=== PATIENT | male | born 1955 | race Caucasian/White ===

== ENCOUNTER → 2017-07-27 | Outpatient (CLI) | payer BC ==
[~2017-07-27] MED LIST: ASP81CT PO; CLPD75T PO; DICY10CA12 PO; HYDR-3714 PO; LISI10TA PO; METO25TA PO; NITR0.3T SL; ONDN4T PO; PNT40TEC PO; PRAV40TA PO; VARE0.5T PO
== END ==
LOC: CARD 08:34
PROVIDERS: ATTEND Internal Medicine Interventional Cardiology
DX: I25.10 Atherosclerotic heart disease of native coronary artery without angina pectoris (principal); R55 Syncope and collapse
CPT/HCPCS: 93306

== ENCOUNTER → 2017-08-05 | Outpatient (CLI) | payer BC ==
[~2017-08-05] MED LIST changes: +CATHETER FLUSH 10 ML SYR IV PRN; +REGADENOSON 0.4 MG/5 ML SYR (LEXISCAN) IV ONE
[2017-08-05 09:05] VITALS: BP 126/81
[2017-08-05 09:08] VITALS: BP 137/80
--- NOTE | 2017-08-06 09:24 | STRESS TEST ---
DATE OF SERVICE: 08/05/2017 REPORT TITLE: Nuclear Stress Test Report. PRIMARY PHYSICIAN: Les Lopez DO. PERFORMING PHYSICIAN: Dr. Darryl Jenkins. INDICATION: Coronary artery disease, syncope, hyperlipidemia, hypertension, and active smoker. PROCEDURE DETAILS: The patient was brought to the stress lab after informed consent was taken. Pharmacological nuclear stress test was performed according to the protocol. A 0.4 mg of Lexiscan was given IV. Low-grade exercise was performed. Baseline EKG showed sinus rhythm with no ST-T wave abnormalities. Heart rate was 58 BPM. Blood pressure was 144/95 mmHg. Maximum heart rate was 92 BPM and blood pressure was 141/81 mmHg. The patient did not have any stress test, arrhythmias, or EKG changes during Lexiscan infusion. A 10.76 mCi of Myoview were given for rest imaging and 32.3 mCi of Myoview were given for stress imaging. Review of the myocardial perfusion imaging shows TID of 1.03, EF of 51%. Normal wall motion with normal LVEF. Normal perfusion during stress and rest imaging. CONCLUSION: 1. Pharmacological stress test is negative for ischemia. 2. Myocardial perfusion imaging does not show any perfusion defect during stress and rest imaging. Job ID: [id number] DocumentID: [id number] Dictated Date: 08/05/2017 16:20:49 Geotechnical Field Technician Date: 08/05/2017 17:03:39 Dictated By: SHAKIR JENKINS MD
== END ==
LOC: CARD 07:55
PROVIDERS: ATTEND Internal Medicine Interventional Cardiology
DX: I25.10 Atherosclerotic heart disease of native coronary artery without angina pectoris (principal); I10 Essential (primary) hypertension; E78.5 Hyperlipidemia, unspecified; R55 Syncope and collapse; Z72.0 Tobacco use
CPT/HCPCS: 78452; 93017

== ENCOUNTER → 2017-09-23 | Outpatient (CLI) | payer BC ==
[~2017-09-23] MED LIST changes: -CATHETER FLUSH 10 ML SYR IV PRN; -REGADENOSON 0.4 MG/5 ML SYR (LEXISCAN) IV ONE
== END ==
LOC: CARD 08:43
PROVIDERS: ATTEND Internal Medicine Interventional Cardiology
DX: I25.10 Atherosclerotic heart disease of native coronary artery without angina pectoris (principal); Q21.1 Atrial septal defect

== ENCOUNTER → 2019-11-09 | Outpatient (CLI) | payer BC ==
[~2019-11-09] VITALS: Ht 180 cm; Wt 74.0 kg
[~2019-11-09] MED LIST changes: +CARV6.25 PO; +CATHETER FLUSH 10 ML SYR IV PRN; +MELO7.5T46 PO; +REGADENOSON 0.4 MG/5 ML SYR (LEXISCAN) IV ONE
[2019-11-09 09:26] VITALS: BP 141/86
--- NOTE | 2019-11-16 13:04 | Cardiology Stress Test Report ---
Stress Test Report Type of NM Stress Test: Test Type: LEXISCAN 0.4MG/5ML Date of Procedure/Referring: Date of Procedure: Nov 09, 2019 PCP Darryl Jenkins MD Admitting Physician Les Lopez DO Indications: Chest pain Baseline Heart Rate: 57 Baseline Blood Pressure: Blood Pressure Systolic: 141 Blood Pressure Diastolic: 86 Baseline EKG: Baseline EKG: sinus rhythm Summary & Conclusion: Summary: The patient was brought to the stress lab after informed consent was taken. Stress test was performed according to the Lexiscan protocol. 0.4 mg of IV Lexiscan was given. Low-grade exercise was performed. Baseline EKG showed sinus rhythm at 57 BPM. Blood pressure 141/86 mmHg. Maximum heart rate of 63 bpm and blood pressure 139/82 mmHg. Patient did not have any chest pain, arrhythmias or ST segment changes during the stress test. 10.43 mCi of Myoview were given for rest imaging and 30.9 mCi of Myoview given for stress imaging. Transient ischemic dilatation score 1.09, EF 58 percent. Normal wall motion. Small fixed apical defect likely an artifact with normal wall motion Conclusion: Pharmacological stress test was negative for ischemia. Normal LV function with no wall motion abnormalities. Normal myocardial perfusion imaging during rest and stress. Darryl JENKINS MD Nov 16, 2019 13:04
== END ==
LOC: CARD 08:07
PROVIDERS: ATTEND Internal Medicine Interventional Cardiology
DX: I25.118 Atherosclerotic heart disease of native coronary artery with other forms of angina pectoris (principal); I10 Essential (primary) hypertension; E78.5 Hyperlipidemia, unspecified
CPT/HCPCS: 78452; 93017

== ENCOUNTER → 2019-11-16 | Outpatient (CLI) | payer BC ==
[~2019-11-16] MED LIST changes: -CATHETER FLUSH 10 ML SYR IV PRN; -REGADENOSON 0.4 MG/5 ML SYR (LEXISCAN) IV ONE
== END ==
LOC: CARD 10:18
PROVIDERS: ATTEND Internal Medicine Interventional Cardiology
DX: I25.10 Atherosclerotic heart disease of native coronary artery without angina pectoris (principal); E78.5 Hyperlipidemia, unspecified; I10 Essential (primary) hypertension
CPT/HCPCS: 93306

== ENCOUNTER 2020-05-14 11:42 | Emergency (ER) | payer BC ==
[~2020-05-14] VITALS: Ht 180.3 cm; Wt 74.8 kg
[2020-05-14 11:54] VITALS: BP 125/75
[2020-05-14] MEDS ORDERED: ONDANSETRON 4 MG (ZOFRAN) ORAL DISSOLVE TAB PO STA (12:00)
[2020-05-14] MEDS ORDERED: ONDA4TAB11 PO (12:05)
--- NOTE | 2020-05-14 12:05 | ED Abdominal Pain ---
General Chief Complaint: Abdominal/GI Problems Stated Complaint: SOB; COUGH; LUNG PAIN; FATIGUE; NAUSEA; DIARRHEA; Source of Information: Patient, Old Records, RN/MD Exam Limitations: No Limitations History of Present Illness Date Seen by Provider: May 14, 2020 Time Seen by Provider: 11:50 Initial Comments This patient is a 64-year-old male that presents to the emergency department with complaint of nausea and loose stool over the past couple days. Patient sta edson he has had no nausea vomiting today and no diarrhea today. Anything she is on the down we'll slow. Patient states she had felt bad all weekend and try to stay home and has not been out in the public. Patient states that if he get something for the nausea would just help. Patient does not appear to be acutely sick vital signs are stable pulse of 64 blood pressure is 109/71. Patient does have a history of anxiety. Patient does not describe any respiratory symptoms and has no complaints of shortness of breath. Cough congestion or recent travel. I did discuss with the patient. Patient will be given a Zofran orally here and will be given a prescription for Zofran for the next couple days patient is encouraged to orally rehydrate and follow up with PCP in 2-3 days if not improved. Patient may take Pepto-Bismol as needed to help with diarrhea. Timing/Duration: 2-3 Days Severity/Quality: Mild Associated Symptoms: No Denies Symptoms, No Back Pain, No Chest Pain, No Diaphoresis, No Fever/Chills, No Fatigue, No Headache, No Heartburn; Nausea/Vomiting; No Rash, No Shortness of Air, No Swelling/Mass in Abdomen, No Syncope, No Weakness, No Other Allergies and Home Medications Allergies Coded Allergies: No Known Drug Allergies (Unverified , 05/01/14) Home Medications Aspirin 81 Mg Chew, 81 MG PO DAILY, (Reported) Carvedilol 6.25 Mg Tablet, 6.25 MG PO BID, (Reported) Clopidogrel Bisulfate 75 Mg Tab, 75 MG PO DAILY, (Reported) Lisinopril 10 Mg Tablet, 10 MG PO DAILY, (Reported) Meloxicam 7.5 Mg Tablet, 7.5 MG PO BID, (Reported) Nitroglycerin 0.3 Mg Tab.subl, 0.3 MG SL Q5 MIN X3 DOSES PRN for CHEST PAIN, (Reported) PRN CHEST PAIN Pravastatin Sodium 40 Mg Tablet, 40 MG PO HS, (Reported) Varenicline Tartrate 0.5 Mg Tablet, 0.5 MG PO DAILY, (Reported) Patient Home Medication List Home Medication List Reviewed: Yes Review of Systems Review of Systems Constitutional: No no symptoms reported, No see HPI, No chills, No diaphoresis, No dizziness, No fever, No malaise, No weakness, No weight gain, No weight loss, No other EENTM: No No Symptoms Reported, No See HPI, No Blurred Vision, No Double Vision, No Eye Pain, No Eye Tearing, No Ear Drainage, No Ear Pain, No Mouth Pain, No Mouth Swelling, No Nose Congestion, No Nose Pain, No Throat Pain, No Throat Swelling, No Other Respiratory: Denies No Symptoms Reported, Denies See HPI, Denies Cough, Denies Orthopnea, Denies Shortness of Air, Denies SOA With Exertion, Denies SOA at Rest, Denies Stridor, Denies Wheezing, Denies Other Cardiovascular: Denies No Symptoms Reported, Denies See HPI, Denies Chest Pain, Denies Edema, Denies Irregular Heart Rate, Denies Lightheadedness, Denies Palpitations, Denies Syncope, Denies Other Gastrointestinal: See HPI, Diarrhea, Nausea Genitourinary: Denies Burning, Denies Discharge, Denies Drainage, Denies Frequency, Denies Flank Pain, Denies Hematuria, Denies Incontinence, Denies Pain, Denies Urgency, Denies Other Musculoskeletal: No no symptoms reported, No see HPI, No back pain, No gout, No joint pain, No joint swelling, No muscle pain, No muscle stiffness, No muscle cramps, No muscle twitching, No muscle weakness, No neck pain, No other Skin: No no symptoms reported, No see HPI, No change in color, No change in hair/nails, No dryness, No hx of skin cancer, No lesions, No lumps, No pruritus, No rash, No other All Other Systems Reviewed Negative Unless Noted: Yes Past [id number] Hx Patient Social History Type Used: Cigarettes Former Smoker, Quit: Jul 30, 2017 Past Medical History COPD Reproductive Disorders: No Sexually Transmitted Disease: No HIV/AIDS: No Gall Bladder Disease Adverse Reaction/Blood Tranf: No Family Medical History Cancer G8 BROTHER Chest pain 19 FATHER FH: COPD (chronic obstructive pulmonary disease) 19 FATHER Family history: Arthritis G8 BROTHER Family history: Cardiovascular disease 19 FATHER ( AT AGE 60 FROM [place]) G8 BROTHER (11 STINTS) Family history: Hypertension 19 FATHER G8 BROTHER Family history: Thyroid disorder 19 MOTHER Heart disease 19 FATHER Myocardial infarction 19 FATHER, Onset:60 years & older No Family History of: Congenital heart disease Physical Exam Vital Signs Capillary Refill : Height/Weight/BMI Height: 6'0.00" Weight: 165lbs. 0.0oz. [id number]; 22.83 BMI Method:Stated General Appearance: WD/WN, no apparent distress HEENT: normal ENT inspection, pharynx normal Respiratory: chest non-tender, lungs clear, normal breath sounds, no respiratory distress, no accessory muscle use Cardiovascular: normal peripheral pulses, regular rate, rhythm, no edema, no ga llop, no JVD, no murmur Gastrointestinal: normal bowel sounds, non tender, soft, no organomegaly, no pulsatile mass Skin: normal color, warm/dry Progress/Results/Core Measures Results/Orders My Orders Orders - RUBINA MASON MD Ondansetron Oral Dissolve Tab (Zofran (05/14/20 12:00) Progress Progress Note : Time: 12:03 Progress Note Patient complains nausea vomiting over the weekend but is resolving. Patient has had no nausea and vomiting today and only one loose stool early this morning. Patient does not appear to be acutely dehydrated. Patient has a long history of anxiety. Patient has no respiratory symptoms in the emergency department. Will be given a prescription for Zofran for the next couple days patient is encouraged to orally rehydrate and follow up with PCP in 2-3 days if not improved. Patient may take Pepto-Bismol as needed to help with diarrhea. Departure Impression Primary Impression: Nausea and vomiting Additional Impression: Diarrhea Disposition: 01 HOME, SELF-CARE Condition: Stable Departure-Patient Inst. Decision time for Depature: 12:04 Referrals: IDALIA TRIVEDI DO (PCP/Family) Primary Care Physician Patient Instructions: Oral Rehydration Therapy Add. Discharge Instructions: will be given a prescription for Zofran for the next couple days patient is encouraged to orally rehydrate and follow up with PCP in 2-3 days if not improved. Patient may take Pepto-Bismol as needed to help with diarrhea. All discharge instructions reviewed with patient and/or family. Voiced und erstanding. Scripts Ondansetron (Ondansetron Odt) 4 Mg Tab.rapdis 4 MG PO BID PRN for prn, #10 TAB 0 Refills Prov: RUBINA MASON MD 05/14/20 RUBINA MASON MD May 14, 2020 12:05
== END 2020-05-14 12:11 | disposition home or self-care (01) ==
LOC: EDUNIT# 11:42 → ER FS 11:44
DX: R11.2 Nausea with vomiting, unspecified (principal); R19.7 Diarrhea, unspecified; Z79.82 Long term (current) use of aspirin; Z79.02 Long term (current) use of antithrombotics/antiplatelets; Z87.891 Personal history of nicotine dependence; Z82.49 Family history of ischemic heart disease and other diseases of the circulatory system
CPT/HCPCS: 99283

== ENCOUNTER → 2020-06-12 | Outpatient (CLI) | payer BC ==
[~2020-06-12] MED LIST changes: +ONDA4TAB11 PO
--- NOTE | 2020-06-12 15:12 | Diagnostic Imaging Report ---
INDICATION: COUGH; SOB COMPARISON: None. FINDINGS: Frontal and lateral views of the chest demonstrate normal heart size and pulmonary vascularity. The lungs are clear. There are no signs of infiltrate, pleural effusions or pneumothoraces. The visualized osseous structures show no acute abnormality. IMPRESSION: No acute process. No signs of infiltrates, effusions or pneumothoraces. Dictated by: Dictated on workstation # [id number]
== END ==
LOC: RAD FS 14:49
DX: R05 Cough (principal); R06.02 Shortness of breath
CPT/HCPCS: 71046

== ENCOUNTER 2020-06-18 12:52 | Outpatient (RCR) | payer BC ==
[2020-06-18 14:08] LABS: ABSOLUTE RETIC # 41 10e9/L (24-90); BASOPHILS % (AUTO) 0 % (0-10); EOSINOPHILS # (AUTO) 0.1 10^3/uL (0.0-0.3); EOSINOPHILS % (AUTO) 1 % (0-10); HEMATOCRIT 35 % (40-54); LYMPHOCYTES # (AUTO) 1.1 X 10^3 (1.0-4.0); LYMPHOCYTES % (AUTO) 10 % (12-44); MEAN CORPUSCULAR HEMOGLOBIN 31 PG (25-34); MEAN CORPUSCULAR HGB CONC 34 G/DL (32-36); MEAN CORPUSCULAR VOLUME 91 FL (80-99); MONOCYTES # (AUTO) 0.6 X 10^3 (0.0-1.0); MONOCYTES % (AUTO) 6 % (0-12); NEUTROPHILS # (AUTO) 8.3 X 10^3 (1.8-7.8); NEUTROPHILS % (AUTO) 82 % (42-75); PLATELET COUNT 215 10^3/uL (130-400); RETICULOCYTE % 1.04 % (0.50-2.40); WHITE BLOOD COUNT 10.2 10^3/uL (4.3-11.0)
[2020-06-18 14:25] LABS: ALANINE AMINOTRANSFERASE 16 U/L (0-55); ALBUMIN 4.1 GM/DL (3.2-4.5); ALKALINE PHOSPHATASE 55 U/L (40-136); BILIRUBIN,TOTAL 1.6 MG/DL (0.1-1.0); BUN/CREATININE RATIO 15; CALCIUM 9.9 MG/DL (8.5-10.1); CARBON DIOXIDE 22 MMOL/L (21-32); CHLORIDE 103 MMOL/L (98-107); CREATININE SERUM 0.99 MG/DL (0.60-1.30); GFR ESTIMATED > 60; GLUCOSE 125 MG/DL (70-105); POTASSIUM 3.6 MMOL/L (3.6-5.0); SODIUM 136 MMOL/L (135-145); TOTAL PROTEIN 7.2 GM/DL (6.4-8.2)
[2020-06-25] MEDS ORDERED: CEFD300C3 PO (18:41)
[2020-06-25] MEDS ORDERED: AZIT250T12 PO (18:41)
== END 2020-09-16 | disposition home or self-care (01) ==
LOC: ONC 12:52
PROVIDERS: ATTEND Internal Medicine Hematology & Oncology
DX: D61.818 Other pancytopenia (principal); I25.10 Atherosclerotic heart disease of native coronary artery without angina pectoris; J44.9 Chronic obstructive pulmonary disease, unspecified; I10 Essential (primary) hypertension; E78.00 Pure hypercholesterolemia, unspecified
CPT/HCPCS: 80053; 83615; 84165; 85025; 85045; G0463; 84155; 99214

== ENCOUNTER 2020-06-25 13:16 | Emergency (ER) | payer BC ==
[~2020-06-25] VITALS: Ht 180 cm; Wt 76.0 kg
[2020-06-25] MEDS ORDERED: cefTRIAXone FOR IV USE 1,000 MG in WATER (STERILE) FOR INJECTION 10 ML IV ONE (13:45)
[2020-06-25] MEDS ORDERED: NS IV 1000 ML 1,000 ML IV SCH (13:45)
[2020-06-25] MEDS ORDERED: NS IV 500 ML 500 ML IV ONE (13:45)
[2020-06-25] MEDS ORDERED: AZITHROMYCIN INJECTION 500 MG in NS (IVPB) 250 ML IV ONE (13:45)
[2020-06-25] MEDS ORDERED: ACETAMINOPHEN 500 MG TAB (TYLENOL) PO PRN (13:45)
[2020-06-25 13:56] LABS: BASOPHILS % (AUTO) 0 % (0-10); EOSINOPHILS # (AUTO) 0.1 10^3/uL (0.0-0.3); EOSINOPHILS % (AUTO) 1 % (0-10); HEMATOCRIT 33 % (40-54); HEMOGLOBIN 11.1 G/DL (13.3-17.7); LYMPHOCYTES # (AUTO) 0.6 X 10^3 (1.0-4.0); LYMPHOCYTES % (AUTO) 7 % (12-44); MEAN CORPUSCULAR HEMOGLOBIN 30 PG (25-34); MEAN CORPUSCULAR HGB CONC 34 G/DL (32-36); MEAN CORPUSCULAR VOLUME 90 FL (80-99); MEAN PLATELET VOLUME 9.6 FL (7.4-10.4); MONOCYTES # (AUTO) 0.7 X 10^3 (0.0-1.0); MONOCYTES % (AUTO) 8 % (0-12); NEUTROPHILS # (AUTO) 7.7 X 10^3 (1.8-7.8); NEUTROPHILS % (AUTO) 84 % (42-75); PLATELET COUNT 291 10^3/uL (130-400); WHITE BLOOD COUNT 9.2 10^3/uL (4.3-11.0)
--- NOTE | 2020-06-25 13:58 | ED Respiratory ---
General Chief Complaint: Respiratory Problems Stated Complaint: SOB;SORE THROAT;COUGH Source: patient Exam Limitations: no limitations (NOAH BUCK) History of Present Illness Date Seen by Provider: Jun 25, 2020 Time Seen by Provider: 13:31 Initial Comments Patient resents ER by private conveyance from home with chief complaint for the past 6 weeks he's been having viral GI bug symptoms with nausea vomiting diarrhea. Dr. TRIVEDI tested him for COVID 19 at the end of April and it was negative. He has been followed ever since then. He has not been on steroids. He does have COPD. For the past 10 days however history of having respirations symptoms or shortness of breath especially on exertion and nagging nonproductive cough. He's been using his inhaler without any relief of coughing symptoms but it does help with his mild shortness of breath. He does not use oxygen at baseline. He works as a design manager with multiple sick contacts. He's been havin g chills but no objective fevers. No nausea or vomiting at this time. No diarrhea presently. Negative for loss and taste or smell. He did have some derangements of his cell lines that resulted in a referral to hematology oncology who repeated labs today at all resumes normal and had no follow-up plans at that time. He has not been on steroids since this started. He has a history of 2 stents the first [address] Hagen and a second one by Dr. Jenkins. (NOAH BUCK) Allergies and Home Medications Allergies Coded Allergies: No Known Drug Allergies (Unverified , 05/01/14) Home Medications Aspirin 81 Mg Chew, 81 MG PO DAILY, (Reported) Azithromycin 250 Mg Tablet, 250 MG PO DAILY Prescribed by: JOSLYN CARMONA on 06/25/201840 Carvedilol 6.25 Mg Tablet, 6.25 MG PO BID, (Reported) Cefdinir 300 Mg Capsule, 300 MG PO BID Prescribed by: JOSLYN CARMONA on 06/25/201840 Clopidogrel Bisulfate 75 Mg Tab, 75 MG PO DAILY, (Reported) Lisinopril 10 Mg Tablet, 10 MG PO DAILY, (Reported) Meloxicam 7.5 Mg Tablet, 7.5 MG PO BID, (Reported) Nitroglycerin 0.3 Mg Tab.subl, 0.3 MG SL Q5 MIN X3 DOSES PRN for CHEST PAIN, (Reported) PRN CHEST PAIN Ondansetron 4 Mg Tab.rapdis, 4 MG PO BID PRN for prn Prescribed by: RUBINA MASON on 05/14/20 1205 Pravastatin Sodium 40 Mg Tablet, 40 MG PO HS, (Reported) Varenicline Tartrate 0.5 Mg Tablet, 0.5 MG PO DAILY, (Reported) Patient Home Medication List Home Medication List Reviewed: Yes (NOAH BUCK) Review of Systems Review of Systems Constitutional: No chills, No diaphoresis EENTM: No ear discharge, No ear pain Respiratory: cough; No phlegm Cardiovascular: No chest pain; Hx of Intervention; No palpitations Gastrointestinal: No abdominal pain Genitourinary: No discharge, No dysuria Musculoskeletal: No back pain, No joint pain Skin: No change in color, No lesions, No rash Psychiatric/Neurological: Denies Headache, Denies Numbness (NOAH BUCK) All Other Systems Reviewed Negative Unless Noted: Yes (NOAH BUCK) Past Vokkkqt-Yjlaab-Kyntrv Hx Patient Social History Alcohol Use: Denies Use Recreational Drug Use: No Smoking Status: Former Smoker Type Used: Cigarettes Former Smoker, Quit: Jul 30, 2017 (NOAH BUCK) Past Medical History COPD Reproductive Disorders: No Sexually Transmitted Disease: No HIV/AIDS: No Gall Bladder Disease Adverse Reaction/Blood Tranf: No (NOAH BUCK) Family Medical History Cancer G8 BROTHER Chest pain 19 FATHER FH: COPD (chronic obstructive pulmonary disease) 19 FATHER Family history: Arthritis G8 BROTHER Family history: Cardiovascular disease 19 FATHER ( AT AGE 60 FROM [place]) G8 BROTHER (11 STINTS) Family history: Hypertension 19 FATHER G8 BROTHER Family history: Thyroid disorder 19 MOTHER Heart disease 19 FATHER Myocardial infarction 19 FATHER, Onset:60 years & older No Family History of: Congenital heart disease Physical Exam Vital Signs - First Documented 06/25/20 06/25/20 13:31 20:21 Temp 38.2 Pulse 85 Resp 18 B/P (MAP) 125/100 (108) Pulse Ox 95 O2 Delivery Room Air (JOSLYN KULKARNI MD) Capillary Refill : (NOAH BUCK) Height: 6'0.00" Weight: 165lbs. 0.0oz. 74.337859xf; 23.00 BMI Method:Stated General Appearance: WD/WN, mild distress Eyes: Bilateral Eye Normal Inspection, Bilateral Eye PERRL, Bilateral Eye EOMI HEENT: PERRL/EOMI, normal ENT inspection, pharynx normal Neck: full range of motion, supple, normal inspection Respiratory: lungs clear, normal breath sounds, no accessory muscle use, respiratory distress (22 breaths per minute, good oxygen sats at 96-98% on room air) Cardiovascular: normal peripheral pulses, regular rate, rhythm Gastrointestinal: normal bowel sounds, non tender, soft Extremities: normal range of motion, normal capillary refill Neurologic/Psychiatric: alert, normal mood/affect, oriented x 3 Skin: normal color, warm/dry (NOAH BUCK) Focused Exam Lactate Level 06/25/20 13:45: Lactic Acid Level 0.93 (JOSLYN KULKARNI MD) Lactic Acid Level Laboratory Tests Test 06/25/20 13:45 Lactic Acid Level 0.93 MMOL/L (0.50-2.00) (JOSLYN KULKARNI MD) Progress/Results/Core Measures Suspected Sepsis SIRS Temperature: Pulse: Respiratory Rate: Laboratory Tests 06/25/20 13:45: White Blood Count 9.2 Blood Pressure / Mean: 06/25/20 13:45: Lactic Acid Level 0.93 Laboratory Tests 06/25/20 13:45: Creatinine 0.96, INR Comment 1.1, Platelet Count 291, Total Bilirubin 1.3H (NOAH BUCK) Results/Orders Lab Results Laboratory Tests Test 06/25/20 13:39 06/25/20 13:45 06/25/20 14:01 06/25/20 15:10 Range/Units Coronavirus 2019 (TINO) Negative Negative White Blood Count 9.2 4.3-11.0 10^3/uL Red Blood Count 3.65 L 4.35-5.85 10^6/uL Hemoglobin 11.1 L 13.3-17.7 G/DL Hematocrit 33 L 40-54 % Mean Corpuscular Volume 90 80-99 FL Mean Corpuscular Hemoglobin 30 25-34 PG Mean Corpuscular Hemoglobin Concent 34 32-36 G/DL Red Cell Distribution Width 12.7 10.0-14.5 % Platelet Count 291 130-400 10^3/uL Mean Platelet Volume 9.6 7.4-10.4 FL Neutrophils (%) (Auto) 84 H 42-75 % Lymphocytes (%) (Auto) 7 L 12-44 % Monocytes (%) (Auto) 8 0-12 % Eosinophils (%) (Auto) 1 0-10 % Basophils (%) (Auto) 0 0-10 % Neutrophils # (Auto) 7.7 1.8-7.8 X 10^3 Lymphocytes # (Auto) 0.6 L 1.0-4.0 X 10^3 Monocytes # (Auto) 0.7 0.0-1.0 X 10^3 Eosinophils # (Auto) 0.1 0.0-0.3 10^3/uL Basophils # (Auto) 0.0 0.0-0.1 10^3/uL Neutrophils % (Manual) 79 % Lymphocytes % (Manual) 11 % Monocytes % (Manual) 5 % Eosinophils % (Manual) 1 % Myelocytes % 1 % Band Neutrophils 3 % Poikilocytosis SLIGHT Anisocytosis SLIGHT Prothrombin Time 14.6 12.2-14.7 SEC INR Comment 1.1 0.8-1.4 Activated Partial Thromboplast Time 31 24-35 SEC D-Dimer 1.10 H 0.00-0.49 UG/ML Sodium Level 134 L 135-145 MMOL/L Potassium Level 4.3 3.6-5.0 MMOL/L Chloride Level 101 98-107 MMOL/L Carbon Dioxide Level 24 21-32 MMOL/L Anion Gap 9 5-14 MMOL/L Blood Urea Nitrogen 9 7-18 MG/DL Creatinine 0.96 0.60-1.30 MG/DL Estimat Glomerular Filtration Rate > 60 BUN/Creatinine Ratio 9 Glucose Level 106 H 70-105 MG/DL Lactic Acid Level 0.93 0.50-2.00 MMOL/L Calcium Level 9.1 8.5-10.1 MG/DL Corrected Calcium 9.3 8.5-10.1 MG/DL Total Bilirubin 1.3 H 0.1-1.0 MG/DL Aspartate Amino Transf (AST/SGOT) 26 5-34 U/L Alanine Aminotransferase (ALT/SGPT) 22 0-55 U/L Alkaline Phosphatase 56 40-136 U/L C-Reactive Protein High Sensitivity 9.07 H 0.00-0.50 MG/DL Total Protein 6.9 6.4-8.2 GM/DL Albumin 3.7 3.2-4.5 GM/DL Procalcitonin 0.06 <0.10 NG/ML Blood Gas Puncture Site RT RAD Blood Gas Patient Temperature 100.9 Arterial Blood pH 7.54 H 7.37-7.43 Arterial Blood Partial Pressure CO2 29 L 35-45 MMHG Arterial Blood Partial Pressure O2 108 H 79-93 MMHG Arterial Blood HCO3 24 23-27 MMOL/L Arterial Blood Total CO2 24.9 21.0-31.0 MMOL/L Arterial Blood Oxygen Saturation 99 94-100 % Arterial Blood Base Excess 1.7 -2.5-2.5 MMOL/L Quang Test YES-POS Blood Gas Ventilator Setting NO Blood Gas Inspired Oxygen ROOM AIR Urine Color YELLOW Urine Clarity CLEAR Urine pH 7.5 5-9 Urine Specific Ace 1.010 L 1.016-1.022 Urine Protein NEGATIVE NEGATIVE Urine Glucose (UA) NEGATIVE NEGATIVE Urine Ketones NEGATIVE NEGATIVE Urine Nitrite NEGATIVE NEGATIVE Urine Bilirubin NEGATIVE NEGATIVE Urine Urobilinogen 4.0 < = 1.0 MG/DL Urine Leukocyte Esterase NEGATIVE NEGATIVE Urine RBC (Auto) NEGATIVE NEGATIVE Urine RBC NONE /HPF Urine WBC NONE /HPF Urine Crystals NONE /LPF Urine Bacteria NEGATIVE /HPF Urine Casts NONE /LPF Urine Mucus NEGATIVE /LPF Urine Culture Indicated NO (JOSLYN KULKARNI MD) Micro Results Microbiology 06/25/20 Influenza Types A,B Antigen (MALLORY) - Final, Complete (JOSLYN KULKARNI MD) My Orders Orders - JOSLYN KULKARNI MD Ct Angio Chest W (06/25/20 18:11) Iohexol Injection (Omnipaque 350 Mg/Ml 1 (06/25/20 18:15) Received Contrast (Hold Metformin- Contr (06/25/20 18:15) Ns (Ivpb) (Sodium Chloride 0.9% Ivpb Bag (06/25/20 18:15) (JOSLYN KULKARNI MD) Medications Given in ED Current Medications Medications Dose Ordered Sig/Dominique Route Start Time Stop Time Status Last Admin Dose Admin Acetaminophen 1,000 mg ONCE PRN PO 06/25/20 13:45 06/25/20 14:02 DC 06/25/20 14:02 1,000 MG Azithromycin 500 mg/Sodium Chloride 250 ml @ 250 mls/hr ONCE ONCE IV 06/25/20 13:45 06/25/20 14:44 DC 06/25/20 14:00 250 MLS/HR Ceftriaxone Sodium 1000 mg/ Sterile Water 10 ml @ 200 mls/hr ONCE ONCE IV 06/25/20 13:45 06/25/20 13:49 DC 06/25/20 14:01 200 MLS/HR Iohexol 75 ml ONCE ONCE IV 06/25/20 18:15 06/25/20 18:30 DC 06/25/20 19:31 75 ML Sodium Chloride 100 ml ONCE ONCE IV 06/25/20 18:15 06/25/20 18:30 DC 06/25/20 19:31 80 ML Sodium Chloride 500 ml @ 0 mls/hr Q0M ONCE IV 06/25/20 13:45 06/25/20 13:49 DC 06/25/20 14:01 500 MLS/HR (JOSLYN KULKARNI MD) Vital Signs/I&O 06/25/20 06/25/20 13:31 20:21 Temp 38.2 37.0 Pulse 85 67 Resp 18 16 B/P (MAP) 125/100 (108) 103/77 (108) Pulse Ox 95 97 O2 Delivery Room Air 06/26/20 00:00 Intake Total 1760 ml Balance 1760 ml (JOSLYN KULKARNI MD) Vital Signs/I&O Capillary Refill : (NOAH BUCK) Progress Note #1: Time: 14:02 Progress Note Based on the respiratory rate elevation and fever patient has sepsis. Because we are considering COVID-19 we'll get a rapid swab and be gentle with her IV rehydration. 1500 cc would be greater than 20 ml per kilogram. Chest x-ray, EKG since he's a heart patient and troponin. We'll do an in-house COVID screen and influenza swab. Tylenol for his fever. Rocephin and azithromycin for his antibiotics. No GI symptoms at this time. Progress Note #2: Time: 18:11 Progress Note The patient has aseptic vital signs except for his fever and is not requiring any oxygen at this time. He appears to have bilateral infiltrates. Because of his recent illness pulmonary embolism is a possibility and repeat a CT angiogram. We will give him some IV antibiotics for presumed bacterial infection possible walking pneumonia. We will offer him a stay but he would probably be reasonable to try outpatient antibiotics and follow-up. I have discussed this case with Dr. Carmona and he agrees to take over the case. (NOAH BUCK) Progress Note #1: Time: 18:33 Progress Note Care of this patient has been assumed from Dr. Buck. Antibiotic and IVF have been ordered. CTA chest is pending. Patient re-examined. Lungs are clear. He is not in respiratory distress or hypoxic. Assuming no surprise findings on CTA he will be dismissed home after antibiotic administration. Progress Note #2: Progress Note CT angio was negative for PE. Nodularity and lymphadenopathy were noted on the CT and follow-up was recommended. This was discussed with the patient. (JOSLYN KULKARNI MD) ECG Initial ECG Impression Date: Jun 25, 2020 Initial ECG Impression Time: 14:09 Initial ECG Rate: 75 Initial ECG Rhythm: Normal Sinus Initial ECG Intervals: Normal Initial ECG Impression: Normal Initial ECG Comparisson: No Previous ECG Available Comment Normal sinus rhythm without clinically relevant ST elevation or depression. (NOAH BUCK) Diagnostic Imaging Diagonstic Imaging: Xray Plain Films/CT/US/NM/MRI: chest (1v) Comments [facility], [place] NAME: HEBER SANCHEZ [facility] REC#: [id number] PT STATUS: REG ER : 1955 PHYSICIAN: NOAH BUCK MD ADMIT DATE: 06/25/20/ER Signed Date of Exam:06/25/20 CHEST 1 VIEW, AP/PA ONLY INDICATION: Shortness of breath. COMPARISON: Comparison is made to prior examination of 06/12/2020. FINDINGS: The heart size is normal. There are patchy bibasilar infiltrates. No pleural effusion or pneumothorax. Mediastinum is unremarkable. IMPRESSION: Patchy bibasilar pulmonary infiltrates. Dictated by: Dictated on workstation # [id number] Dict: 06/25/20 1623 Trans: 06/25/20 1635 [facility] [id number] Interpreted by: LARISSA JOSEPH MD Electronically signed by: LARISSA JOSEPH MD 06/25/20 8905 Reviewed: Reviewed by Me (NOAH BUCK) Diagonstic Imaging: CT Plain Films/CT/US/NM/MRI: chest Comments CT angio chest viewed by me and report reviewed. See report below: NAME: HEBER SANCHEZ [facility] REC#: [id number] PT STATUS: REG ER : 1955 PHYSICIAN: JOSLYN KULKARNI MD ADMIT DATE: 06/25/20/ER Draft Date of Exam:06/25/20 CT ANGIO CHEST W PROCEDURE: CT angiography of the chest with contrast. TECHNIQUE: Multiple contiguous axial images were obtained through the chest after uneventful bolus administration of intravenous contrast. 3D reconstructed CTA MIP acquisitions were also performed. Auto Exposure Controls were utilized during the CT exam to meet ALARA standards for radiation dose reduction. INDICATION: Shortness of air. Elevated d-dimer. COMPARISON: Chest radiograph 06/25/2020. FINDINGS: No pulmonary artery filling defects. Normal caliber thoracic aorta. Normal heart size. No pericardial effusion. No axillary lymphadenopathy. Prominent bilateral hilar lymph nodes measuring up to 0.9 cm in short axis dimension on the right and 1.0 cm in short axis dimension on the left. There are also a couple of enlarged mediastinal lymph nodes. A right paratracheal lymph node measures 1.3 cm in short axis dimension. Subcarinal lymphadenopathy measures up to 1.8 cm. Diffuse bronchial wall thickening with a mixture of groundglass and nodular airspace opacities in the lower lobes bilaterally. The upper lobes are spared. No pleural effusion or pneumothorax. No acute osseous findings. The visualized upper abdominal contents are unremarkable. IMPRESSION: 1. Dense confluent groundglass and nodular airspace opacities in the lung bases are suspicious for infectious/inflammatory process. 2. Bilateral hilar and mediastinal lymphadenopathy. Although this may be related to the infectious/inflammatory process, follow-up is recommended. 3. No pulmonary emboli. Dictated on workstation # [id number] Dict: 06/25/201932 Trans: 06/25/201940 MARTIN [id number] Interpreted by: LORNA DICKINSON MD (JOSLYN KULKARNI MD) Transfer of Care Transfer of Care Time: 18:12 Care transferred to: Dr. Carmona (NOAH BUCK) Departure Impression Primary Impression: Pneumonia Qualified Codes: J18.9 - Pneumonia, unspecified organism Additional Impressions: Person under investigation for COVID-[address] scan, chest Disposition: 01 HOME, SELF-CARE Condition: Improved Departure-Patient Inst. Decision time for Depature: 18:37 (JOSLYN KULKARNI MD) Referrals: IDALIA TRIVEDI DO (PCP/Family) Primary Care Physician Patient Instructions: Chronic Obstructive Pulmonary Disease (COPD) (DC), C oronavirus Disease 2019 (COVID-19) Overview, Pneumonia, Adult (DC) Add. Discharge Instructions: Complete your antibiotics as prescribed. Use your inhaler as previously directed. Return to the ER or call your doctor if you have worsening symptoms. Remain on quarantine until the results of COVID19 testing are known. If positive, quarantine for 14 days. If negative, quarantine until symptom free for 72 hours or otherwise directed. Follow-up with your primary care provider in a couple weeks and review CT imaging with your doctor. A follow-up study may be recommended. All discharge instructions reviewed with patient and/or family. Voiced understanding. Scripts Cefdinir (Cefdinir) 300 Mg Capsule 300 MG PO BID, #14 CAP Prov: JOSLYN KULKARNI MD 06/25/20 Azithromycin (Azithromycin) 250 Mg Tablet 250 MG PO DAILY, #4 TAB 0 Refills Prov: JOSLYN KULKARNI MD 06/25/20 Work/School Note: Work Release Form Date Seen in the Emergency Department: Jun 25, 2020 Return to Work: Jun 29, 2020 Other Restrictions Listed Below: If COVID negative, return when symptom free at least 72 hrs Restrictions: If COVID positive, quarantine for 14 days. Copy Copies To 1: IDALIA TRIVEDI TITUS J Jun 25, 2020 13:57 JOSLYN KULKARNI MD Jun 25, 2020 18:39
[2020-06-25 14:10] LABS: ANISOCYTOSIS SLIGHT; BAND NEUTROPHILS 3 %; EOSINOPHILS % (MANUAL) 1 %; LYMPHOCYTES % (MANUAL) 11 %; MONOCYTES % (MANUAL) 5 %; MYELOCYTES % 1 %; NEUTROPHILS % (MANUAL) 79 %; POIKILOCYTOSIS SLIGHT
[2020-06-25 14:11] LABS: ABG BASE EXCESS 1.7 MMOL/L (-2.5-2.5); ABG OXYGEN SATURATION 99 % (94-100); ABG PCO2 29 MMHG (35-45); ABG PH 7.54 (7.37-7.43); ABG PO2 108 MMHG (79-93); ABG TCO2 24.9 MMOL/L (21.0-31.0)
[2020-06-25 14:13] LABS: ALLENS TEST YES-POS; INSPIRED O2 ROOM AIR
[2020-06-25 14:14] LABS: PATIENT TEMP 100.9; VENTILATOR NO
[2020-06-25 14:14] LABS: ALANINE AMINOTRANSFERASE 22 U/L (0-55); ALBUMIN 3.7 GM/DL (3.2-4.5); ALKALINE PHOSPHATASE 56 U/L (40-136); BILIRUBIN,TOTAL 1.3 MG/DL (0.1-1.0); BUN/CREATININE RATIO 9; CALCIUM 9.1 MG/DL (8.5-10.1); CARBON DIOXIDE 24 MMOL/L (21-32); CHLORIDE 101 MMOL/L (98-107); CREATININE SERUM 0.96 MG/DL (0.60-1.30); FIBRIN DEGRADATION PRODUCTS 1.1 UG/ML (0.00-0.49); GFR ESTIMATED > 60; GLUCOSE 106 MG/DL (70-105); INR 1.1 (0.8-1.4); POTASSIUM 4.3 MMOL/L (3.6-5.0); PROTHROMBIN TIME PATIENT 14.6 SEC (12.2-14.7); SODIUM 134 MMOL/L (135-145); TOTAL PROTEIN 6.9 GM/DL (6.4-8.2)
[2020-06-25 15:18] LABS: BILIRUBIN,URINE NEGATIVE (NEGATIVE); CLARITY,URINE CLEAR; COLOR,URINE YELLOW; GLUCOSE, URINE (UA) NEGATIVE (NEGATIVE); KETONES,URINE NEGATIVE (NEGATIVE); LEUKOCYTE ESTERASE ,URINE NEGATIVE (NEGATIVE); NITRITE,URINE NEGATIVE (NEGATIVE); PH,URINE 7.5 (5-9); PROTEIN,URINE NEGATIVE (NEGATIVE)
[2020-06-25 15:24] LABS: BACTERIA,URINE NEGATIVE /HPF
--- NOTE | 2020-06-25 16:26 | Diagnostic Imaging Report ---
INDICATION: Shortness of breath. COMPARISON: Comparison is made to prior examination of 06/12/2020. FINDINGS: The heart size is normal. There are patchy bibasilar infiltrates. No pleural effusion or pneumothorax. Mediastinum is unremarkable. IMPRESSION: Patchy bibasilar pulmonary infiltrates. Dictated by: Dictated on workstation # [id number]
[2020-06-25] MEDS ORDERED: NS 100 ML (IVPB) BAG IV ONE (18:15)
[2020-06-25] MEDS ORDERED: IOHEXOL 350 MG/ML 100 ML (OMNIPAQUE 350) VIAL IV ONE (18:15)
[2020-06-25] MEDS ORDERED: HOLD METFORMIN - RECEIVED CONTRAST 20 ML VIAL IV SCH (18:15)
[2020-06-25] MEDS ORDERED: AZIT250T12 PO (18:41)
[2020-06-25] MEDS ORDERED: CEFD300C3 PO (18:41)
--- NOTE | 2020-06-25 19:41 | Diagnostic Imaging Report ---
PROCEDURE: CT angiography of the chest with contrast. TECHNIQUE: Multiple contiguous axial images were obtained through the chest after uneventful bolus administration of intravenous contrast. 3D reconstructed CTA MIP acquisitions were also performed. Auto Exposure Controls were utilized during the CT exam to meet ALARA standards for radiation dose reduction. INDICATION: Shortness of air. Elevated d-dimer. COMPARISON: Chest radiograph 06/25/2020. FINDINGS: No pulmonary artery filling defects. Normal caliber thoracic aorta. Normal heart size. No pericardial effusion. No axillary lymphadenopathy. Prominent bilateral hilar lymph nodes measuring up to 0.9 cm in short axis dimension on the right and 1.0 cm in short axis dimension on the left. There are also a couple of enlarged mediastinal lymph nodes. A right paratracheal lymph node measures 1.3 cm in short axis dimension. Subcarinal lymphadenopathy measures up to 1.8 cm. Diffuse bronchial wall thickening with a mixture of groundglass and nodular airspace opacities in the lower lobes bilaterally. The upper lobes are spared. No pleural effusion or pneumothorax. No acute osseous findings. The visualized upper abdominal contents are unremarkable. IMPRESSION: 1. Dense confluent groundglass and nodular airspace opacities in the lung bases are suspicious for infectious/inflammatory process. 2. Bilateral hilar and mediastinal lymphadenopathy. Although this may be related to the infectious/inflammatory process, follow-up is recommended. 3. No pulmonary emboli. Dictated by: Dictated on workstation # [id number]
[2020-06-25 20:21] VITALS: BP 103/77
== END 2020-06-25 20:20 | disposition home or self-care (01) ==
LOC: EDUNIT# 13:16 → ER 13:17
DX: J18.9 Pneumonia, unspecified organism (principal); R91.8 Other nonspecific abnormal finding of lung field; Z82.49 Family history of ischemic heart disease and other diseases of the circulatory system; Z80.9 Family history of malignant neoplasm, unspecified; Z87.891 Personal history of nicotine dependence; Z20.828 Contact with and (suspected) exposure to other viral communicable diseases; Z79.82 Long term (current) use of aspirin
CPT/HCPCS: 36600; 71045; 71275; 80053; 81000; 82805; 83605; 84145; 85007; 85025; 85027; 85379; 85610; 85730; 86141; 87040; 87088; 87804; 99285; U0002; 36415; 87635

== ENCOUNTER → 2020-09-03 | Outpatient (CLI) | payer BC ==
[~2020-09-03] MED LIST changes: +AZIT250T12 PO; +CEFD300C3 PO; +HOLD METFORMIN - RECEIVED CONTRAST 20 ML VIAL IV SCH; +IOHEXOL 350 MG/ML 100 ML (OMNIPAQUE 350) VIAL IV ONE; +NS 100 ML (IVPB) BAG IV ONE; +RT-ALBUTEROL SULF 2.5 MG/3 ML PRE-MIX VIAL INH ONE
[2020-09-03 07:37] LABS: GFR ESTIMATED > 60
[2020-09-03 07:38] LABS: BUN/CREATININE RATIO 20
--- NOTE | 2020-09-03 10:31 | Diagnostic Imaging Report ---
PROCEDURE: CT chest with contrast only. TECHNIQUE: Multiple contiguous axial images were obtained through the chest after administration of intravenous contrast. Auto Exposure Controls were utilized during the CT exam to meet ALARA standards for radiation dose reduction. INDICATION: Pneumonia, dyspnea. FINDINGS: The recent CTA chest exam of 06/25/2020 noted dense alveolar/interstitial pulmonary infiltrates involving both lung bases. These findings were felt to be suspicious for pneumonia/atelectasis. On this exam, both lung bases seem much better aerated. There is only minimal residual density in each lower lobe. The upper lungs are generally clear. There is no sign of a pleural effusion. The heart size is within normal limits and stable when compared to the prior exam. Coronary artery calcifications are again noted. There also appears to be a stent in the LAD. The aorta is not abnormally dilated and there is no sign of a dissection. There is no defect within the pulmonary arteries to indicate a pulmonary embolus. There is no mediastinal or hilar adenopathy. The thyroid gland is generally unremarkable. Sections through the upper abdomen show areas of mixed density throughout the spleen. On the prior exam, the spleen appeared normal and I suspect that the appearance of the spleen on this exam is a vascular phenomenon and not due to an acute injury to the spleen or to an inflammatory/infectious process. Even so, clinical followup is recommended. The upper abdomen is otherwise unremarkable. The bone windows show no sign of a fracture or of a destructive lesion. IMPRESSION: 1. The appearance of the chest has improved considerably since the prior exam as both lung bases are much better aerated. There is only minimal residual density still present in each lower lobe. 2. There is no acute cardiopulmonary abnormality noted. 3. The variegated appearance of the spleen is more likely due to a vascular phenomenon than to an underlying pathologic process of the spleen. Dictated by: Dictated on workstation # [id number]
== END ==
LOC: RT 08:00
PROVIDERS: ATTEND Nurse Practitioner Family
DX: J18.9 Pneumonia, unspecified organism (principal); G47.10 Hypersomnia, unspecified; F17.201 Nicotine dependence, unspecified, in remission
CPT/HCPCS: 36415; 71260; 82565; 84520; 94060; 94726; 94729

== ENCOUNTER 2021-10-08 09:22 | Emergency (ER) | payer MEDICARE ==
[~2021-10-08] VITALS: Ht 182.8 cm; Wt 80.1 kg
[~2021-10-08 09:22] MED LIST changes: -HOLD METFORMIN - RECEIVED CONTRAST 20 ML VIAL IV SCH; -IOHEXOL 350 MG/ML 100 ML (OMNIPAQUE 350) VIAL IV ONE; -NS 100 ML (IVPB) BAG IV ONE; -RT-ALBUTEROL SULF 2.5 MG/3 ML PRE-MIX VIAL INH ONE
[2021-10-08] MEDS ORDERED: ONDANSETRON 4 MG/2 ML (SDV) Z0FRAN IVP STA (09:37)
[2021-10-08] MEDS ORDERED: hydrALAZINE (APESOLINE) 20 MG/ML VIAL IV STA (09:37)
[2021-10-08] MEDS ORDERED: NS IV 1000 ML 1,000 ML IV STA (09:37)
--- NOTE | 2021-10-08 09:46 | ED General ---
General Chief Complaint: Dizziness/Syncope Stated Complaint: DIZZY Source of Information: Patient, Old Records Exam Limitations: No Limitations History of Present Illness Date Seen by Provider: Oct 08, 2021 Time Seen by Provider: 09:25 Initial Comments 65-year-old male presenting with complaints of feeling dizzy and lightheaded since 6 AM when he woke up. He states he got up out of bed and fell forward into the door because of feeling dizzy. He denies having any vomiting, diarrhea, numbness or tingling in extremities, change in vision, burning with urination, fever, chills, cough, drainage from his nose or ears. He has had some recent nosebleeds. He was seen by Dr. Jim with cardiology on the and reports that they decreased his carvedilol because his heart rate was low however, since then he has had elevated blood pressure. He feels like the dizziness is worse with looking around or moving his hand. When he rested his head on the table at home that seemed to make it worse as well. Timing/Duration: 4-6 Hours Severity: Moderate Modifying Factors: worse with Movement Associated Systoms: No Chest Pain, No Cough, No Diaphoresis, No Fever/Chills; Headaches (mild diffuse); No Loss of Appetite, No Malaise; Nausea/Vomiting (mild nausea but no vomiting); No Rash, No Seizure, No Shortness of Air, No Syncope (near syncope when he first stood up this am), No Weakness Allergies and Home Medications Allergies Coded Allergies: No Known Drug Allergies (Unverified , 05/01/14) Patient Home Medication List Home Medication List Reviewed: Yes Aspirin (Aspirin 81 Mg Chew Tab) 81 Mg Chew, 81 MG PO DAILY, (Reported) Entered as Reported by: ASHLEY ALEXANDER on 05/01/14 0907 Azithromycin (Azithromycin) 250 Mg Tablet, 250 MG PO DAILY Prescribed by: JOSLYN TOBIN on 06/25/201840 Carvedilol (Coreg) 6.25 Mg Tablet, 6.25 MG PO BID, (Reported) Entered as Reported by: ERAN UREÑA on 11/25/17 0836 Cefdinir (Cefdinir) 300 Mg Capsule, 300 MG PO BID Prescribed by: JOSLYN TOBIN on 06/25/201840 Clopidogrel Bisulfate (Plavix Tablet) 75 Mg Tab, 75 MG PO DAILY, (Reported) Entered as Reported by: ASHLEY ALEXANDER on 05/01/14 09 Lisinopril (Prinivil) 10 Mg Tablet, 10 MG PO DAILY, (Reported) Entered as Reported by: ASHLEY ALEXANDER on 05/01/14 0907 Meclizine HCl (Meclizine HCl) 25 Mg Tablet, 25 MG PO TID PRN for DIZZINESS Prescribed by: YASMEEN JEREZ on 10/08/21 1205 Meloxicam (Meloxicam) 7.5 Mg Tablet, 7.5 MG PO BID, (Reported) Entered as Reported by: ERAN UREÑA on 11/25/17 0836 Nitroglycerin (Nitrostat) 0.3 Mg Tab.subl, 0.3 MG SL Q5 MIN X3 DOSES PRN for CHEST PAIN, (Reported) Entered as Reported by: ASHLEY ALEXANDER on 05/01/14 0907 Ondansetron (Ondansetron Odt) 4 Mg Tab.rapdis, 4 MG PO BID PRN for prn Prescribed by: RUBINA MASON on 05/14/20 1205 Pravastatin Sodium (Pravachol) 40 Mg Tablet, 40 MG PO HS, (Reported) Entered as Reported by: ASHLEY ALEXANDER on 05/01/14 09 Varenicline Tartrate (Chantix) 0.5 Mg Tablet, 0.5 MG PO DAILY, (Reported) Entered as Reported by: ASHLEY ALEXANDER on 05/01/14 0907 Review of Systems Review of Systems Constitutional: see HPI; No chills, No diaphoresis; dizziness; No fever, No malaise, No weakness EENTM: epistaxis (occasional this week); No ear discharge, No hearing loss, No ear pain, No blurred vision, No double vision, No eye pain, No vision loss, No hoarseness, No nose congestion, No nose pain, No throat pain Respiratory: No cough, No short of breath Cardiovascular: No chest pain, No edema Gastrointestinal: No abdominal pain; nausea (when he feels dizzy); No vomiting Genitourinary: No dysuria, No frequency Musculoskeletal: no symptoms reported Skin: No change in color, No rash Psychiatric/Neurological: Headache (mild diffuse); Denies Numbness, Denies Paresthesia, Denies Tingling, Denies Tremors, Denies Weakness Past Ldrwcvl-[id number]-Fjkwiy Hx Patient Social History Tobacco Use?: No Substance use?: No Past Medical History Surgery/Hospitalization HX: Hypertension, Hypercholesterolemia, CAD with stents Surgeries: Yes Respiratory: Yes COPD Cardiac: Yes (STENT X1 08/28/11, STENT X1 ON 04/27/13) Neurological: No Reproductive Disorders: No Sexually Transmitted Disease: No HIV/AIDS: No Gastrointestinal: Yes (CHOLECYSTITIS, CHOLECYSTECTOMY 05/02/14) Gall Bladder Disease Musculoskeletal: No Endocrine: No Cancer: No Psychosocial: No Integumentary: No Blood Disorders: No Adverse Reaction/Blood Tranf: No Family Medical History Cancer G8 BROTHER Chest pain 19 FATHER FH: COPD (chronic obstructive pulmonary disease) 19 FATHER Family history: Arthritis G8 BROTHER Family history: Cardiovascular disease 19 FATHER ( AT AGE 60 FROM [place]) G8 BROTHER (11 STINTS) Family history: Hypertension 19 FATHER G8 BROTHER Family history: Thyroid disorder 19 MOTHER Heart disease 19 FATHER Myocardial infarction 19 FATHER, Onset:60 years & older No Family History of: Congenital heart disease Physical Exam Vital Signs Vital Signs - First Documented 10/08/21 09:28 Temp 35.2 Pulse 57 Resp 12 B/P (MAP) 170/92 (118) Pulse Ox 98 O2 Delivery Room Air Capillary Refill : Height, Weight, BMI Height: 6'0.00" Weight: 165lbs. 0.0oz. 74.984710zt; 23.00 BMI Method:Stated General Appearance: No Apparent Distress, WD/WN HEENT: PERRL/EOMI, Pharynx Normal, Moist Mucous Membranes Neck: Full Range of Motion, Normal Inspection, Non Tender, Supple; No Carotid Bruit Respiratory: Chest Non Tender, Lungs Clear, Normal Breath Sounds, No Accessory Muscle Use, No Respiratory Distress Cardiovascular: No Murmur, Normal Peripheral Pulses, Bradycardia Gastrointestinal: Normal Bowel Sounds, No Pulsatile Mass, Non Tender, Soft Rectal: Deferred Back: No CVA Tenderness Extremity: Normal Capillary Refill, Normal Inspection, Normal Range of Motion, No Calf Tenderness, No Pedal Edema Neurologic/Psychiatric: Alert, Oriented x3, No Motor/Sensory Deficits, detective chief II- XII Norm as Tested Skin: Normal Color, Warm/Dry; No Rash Progress/Results/Core Measures Suspected Sepsis SIRS Temperature: Pulse: Respiratory Rate: Laboratory Tests 10/08/21 09:45: White Blood Count 4.9 Blood Pressure / Mean: Laboratory Tests 10/08/21 09:45: Creatinine 1.10, INR Comment 1.0, Platelet Count 154, Total Bilirubin 1.1H Results/Orders Lab Results Laboratory Tests Test 10/08/21 09:45 10/08/21 11:52 Range/Units White Blood Count 4.9 4.3-11.0 10^3/uL Red Blood Count 4.51 4.30-5.52 10^6/uL Hemoglobin 13.8 13.3-17.7 g/dL Hematocrit 41 40-54 % Mean Corpuscular Volume 90 80-99 fL Mean Corpuscular Hemoglobin 31 25-34 pg Mean Corpuscular Hemoglobin Concent 34 32-36 g/dL Red Cell Distribution Width 13.2 10.0-14.5 % Platelet Count 154 130-400 10^3/uL Mean Platelet Volume 9.6 9.0-12.2 fL Immature Granulocyte % (Auto) 0 % Neutrophils (%) (Auto) 78 H 42-75 % Lymphocytes (%) (Auto) 10 L 12-44 % Monocytes (%) (Auto) 10 0-12 % Eosinophils (%) (Auto) 1 0-10 % Basophils (%) (Auto) 0 0-10 % Neutrophils # (Auto) 3.8 1.8-7.8 X 10^3 Lymphocytes # (Auto) 0.5 L 1.0-4.0 X 10^3 Monocytes # (Auto) 0.5 0.0-1.0 X 10^3 Eosinophils # (Auto) 0.0 0.0-0.3 10^3/uL Basophils # (Auto) 0.0 0.0-0.1 10^3/uL Immature Granulocyte # (Auto) 0.0 0.0-0.1 10^3/uL Prothrombin Time 13.2 12.2-14.7 SEC INR Comment 1.0 0.8-1.4 Activated Partial Thromboplast Time 27 24-35 SEC Sodium Level 140 135-145 MMOL/L Potassium Level 4.4 3.6-5.0 MMOL/L Chloride Level 106 98-107 MMOL/L Carbon Dioxide Level 25 21-32 MMOL/L Anion Gap 9 5-14 MMOL/L Blood Urea Nitrogen 19 H 7-18 MG/DL Creatinine 1.10 0.60-1.30 MG/DL Estimat Glomerular Filtration Rate 67 BUN/Creatinine Ratio 17 Glucose Level 102 70-105 MG/DL Calcium Level 9.5 8.5-10.1 MG/DL Corrected Calcium 9.3 8.5-10.1 MG/DL Magnesium Level 2.2 1.6-2.4 MG/DL Total Bilirubin 1.1 H 0.1-1.0 MG/DL Aspartate Amino Transf (AST/SGOT) 18 5-34 U/L Alanine Aminotransferase (ALT/SGPT) 19 0-55 U/L Alkaline Phosphatase 67 40-136 U/L Troponin I < 0.30 <0.30 NG/ML Pro-B-Type Natriuretic Peptide 80.0 H <75.0 PG/ML Total Protein 7.2 6.4-8.2 GM/DL Albumin 4.3 3.2-4.5 GM/DL Lipase 14 8-78 U/L Urine Color YELLOW Urine Clarity CLEAR Urine pH 6.0 5-9 Urine Specific [place] 1.015 L 1.016-1.022 Urine Protein NEGATIVE NEGATIVE Urine Glucose (UA) NEGATIVE NEGATIVE Urine Ketones NEGATIVE NEGATIVE Urine Nitrite NEGATIVE NEGATIVE Urine Bilirubin NEGATIVE NEGATIVE Urine Urobilinogen 0.2 < = 1.0 MG/DL Urine Leukocyte Esterase NEGATIVE NEGATIVE Urine RBC (Auto) NEGATIVE NEGATIVE Urine RBC NONE /HPF Urine WBC RARE /HPF Urine Squamous Epithelial Cells RARE /HPF Urine Crystals NONE /LPF Urine Bacteria NEGATIVE /HPF Urine Casts NONE /LPF Urine Mucus NEGATIVE /LPF Urine Culture Indicated NO My Orders Orders - YASMEEN JEREZ MD Ekg Tracing (10/08/21 09:27) Cbc With Automated Diff (10/08/21 09:37) Magnesium (10/08/21 09:37) Chest 1 View Ap/Pa Only (10/08/21 09:37) Comprehensive Metabolic Panel (10/08/21 09:37) Protime With Inr (10/08/21 09:37) Partial Thromboplastin Time (10/08/21 09:37) Monitor-Rhythm Ecg Trace Only (10/08/21 09:37) Ed Iv/Invasive Line Start (10/08/21 09:37) Lipase (10/08/21 09:37) Troponin I Fs (10/08/21 09:37) Probnp Fs (10/08/21 09:37) Ct Head Wo (10/08/21 09:37) Ua Culture If Indicated (10/08/21 09:37) Ns Iv 1000 Ml (Sodium Chloride 0.9%) (10/08/21 09:37) Hydralazine Injection (Apresoline Inject (10/08/21 09:37) Ondansetron Injection (Zofran Injectio (10/08/21 09:37) Meclizine Tablet (Antivert Tablet) (10/08/21 10:51) Vital Signs/I&O 10/08/21 10/08/21 09:28 12:13 Temp 35.2 Pulse 57 57 Resp 12 16 B/P (MAP) 170/92 (118) 104/64 Pulse Ox 98 100 O2 Delivery Room Air Room Air Capillary Refill : Progress Note #1: Progress Note His dizziness may be related to the bradycardia. He states that normally he is in the mid 50s for his heart rate. He currently has been running more 40-50 here in the ED. Obtain electrocardiogram to evaluate for ischemia or ectopy. Chest x-ray to look for pneumonia, effusion, heart failure, mass. CT of the head to evaluate for stroke, hemorrhage, mass, tumor. Obtain blood work to look at his blood count to look for anemia however signs of infection with leukocytosis. Chemistry panel and cardiac enzymes to look for electrolyte imbalance or acute coronary syndrome that might be contributing to his symptoms. This would also evaluate for kidney or liver issues. Urinalysis to look at hydration as well as check for infection or renal dysfunction if he was spilling glucose or protein in his urine. Give IVF 1 L NS for hydration, monitor on cardiac telemetry monitoring for arrhythmia and watching his heart rate. Zofran for his mild nausea. Hydralazine 10 mg IV for his initial hypertension of 170/92 for his blood pressure. Dr. Jim, his diagnostic tech, had decreased his Carvedilol from 6.25 mg to 3.125 mg but he is still bradycardic and having elevated blood pressures. Progress Note #2: Time: 10:28 Progress Note CXR clear of acute process. ECG shows sinus bradycardia but no ST elevation. CBC with no anemia or acute significant abnormality to account for dizziness. Blood pressure improved down to 109/91. CT head no acute intracranial process. mild paranasal sinus disease. Progress Note #3: Progress Note patient reports feeling better after meclizine and fluids. D/w Dr. Jim, diagnostic tech, about the patient. Will have him give a little more time for the med adjustment from a few days ago. Call his office to get appt within next 2 weeks. ECG Initial ECG Impression Date: Oct 08, 2021 Initial ECG Impression Time: 09:34 Initial ECG Rate: 49 Initial ECG Rhythm: S.Dionte Initial ECG Comparisson: Changed Comment Sinus bradycardia with a heart rate of [address] elevation. FL interval 189 ms. QT interval 444 ms. QTc interval 401 ms. This is a change from his previous tracings which were sinus rhythm and this shows more bradycardia. Diagnostic Imaging Diagonstic Imaging: Xray Plain Films/CT/US/NM/MRI: chest Comments NAME: HEBER SANCHEZ MED REC#: [id number] PT STATUS: REG ER : 1955 PHYSICIAN: YASMEEN JEREZ MD ADMIT DATE: 10/08/21/ER FS Draft Date of Exam:10/08/21 CHEST 1 VIEW AP/PA ONLY INDICATION: Dizziness and nausea A single view of the chest shows normal heart size and vascularity. The lungs are clear. There is no effusion or pneumothorax. The infiltrates seen on the study from 06/25/2020 have cleared. IMPRESSION: No acute abnormality is seen. Dictated on workstation # [id number] Dict: 10/08/21 0953 Trans: 10/08/21 0957 [facility] [id number] Interpreted by: MARY BOYKIN MD Electronically signed by: Reviewed: Reviewed by Me Diagonstic Imaging: CT Plain Films/CT/US/NM/MRI: head Comments NAME: HEBER SANCHEZ MED REC#: [id number] PT STATUS: REG ER : 1955 PHYSICIAN: YASMEEN JEREZ MD ADMIT DATE: 10/08/21/ER FS Draft Date of Exam:10/08/21 CT HEAD WO PROCEDURE: CT head without contrast. TECHNIQUE: Multiple contiguous axial images were obtained through the brain without the use of intravenous contrast. Auto Exposure Controls were utilized during the CT exam to meet ALARA standards for radiation dose reduction. INDICATION: Head pain, dizziness, weakness. No priors. FINDINGS: There is no hemorrhage, hydrocephalus, edema, mass, mass effect or evidence for elevated intracerebral pressures. There is mild membrane thickening in the maxillary sinuses. No paranasal sinus air-fluid level. The mastoids clear. The calvarium unremarkable. No orbital pathology. Ventricular system nondilated and nondisplaced. No mass effect or hemorrhage. IMPRESSION: Mild paranasal sinus membrane disease, otherwise negative with no acute appearing abnormalities. Dictated on workstation # [id number] Dict: 10/08/21 1024 Trans: 10/08/21 1027 [facility] [id number] Interpreted by: ORLANDO SAGASTUME Electronically signed by: Reviewed: Reviewed by Me Departure Impression Primary Impression: Dizziness Additional Impressions: Near syncope Sinus bradycardia Disposition: 01 HOME, SELF-CARE Condition: Stable Departure-Patient Inst. Decision time for Depature: 12:02 Referrals: IDALIA TRIVEDI DO (PCP/Family) Primary Care Physician SHON JIM JR, MD Patient Instructions: Dizziness, Adult ED, Bradycardia (DC) Add. Discharge Instructions: Continue to make sure you are drinking plenty of fluids and staying well hydrated. Call Dr. Jim' office and let them know he would like to have you be seen within the next 2 weeks for follow up. You could try the Meclizine to see if that helps your dizziness in case some of it is related to the mild congestion seen on CT scan in the sinuses. Make sure you change positions slowly to give your body time to adjust as you go from laying to sitting to standing. All discharge instructions reviewed with patient and/or family. Voiced understanding. Scripts Meclizine HCl (Meclizine HCl) 25 Mg Tablet 25 MG PO TID PRN for DIZZINESS for 10 Days, #30 TAB 0 Refills Prov: YASMEEN JEREZ MD 10/08/21 Work/School Note: Work Release Form Date Seen in the Emergency Department: Oct 08, 2021 Return to Work: Oct 09, 2021 Restrictions: No Restrictions YASMEEN JEREZ MD Oct 08, 2021 09:45
--- NOTE | 2021-10-08 09:57 | Diagnostic Imaging Report ---
INDICATION: Dizziness and nausea A single view of the chest shows normal heart size and vascularity. The lungs are clear. There is no effusion or pneumothorax. The infiltrates seen on the study from 06/25/2020 have cleared. IMPRESSION: No acute abnormality is seen. Dictated by: Dictated on workstation # [id number]
[2021-10-08 10:02] LABS: HEMATOCRIT 41 % (40-54); HEMOGLOBIN 13.8 g/dL (13.3-17.7); MEAN CORPUSCULAR HEMOGLOBIN 31 pg (25-34); MEAN CORPUSCULAR HGB CONC 34 g/dL (32-36); MEAN CORPUSCULAR VOLUME 90 fL (80-99); MEAN PLATELET VOLUME 9.6 fL (9.0-12.2); PLATELET COUNT 154 10^3/uL (130-400); WHITE BLOOD COUNT 4.9 10^3/uL (4.3-11.0)
[2021-10-08 10:03] LABS: BASOPHILS % (AUTO) 0 % (0-10); EOSINOPHILS % (AUTO) 1 % (0-10); LYMPHOCYTES # (AUTO) 0.5 X 10^3 (1.0-4.0); LYMPHOCYTES % (AUTO) 10 % (12-44); MONOCYTES # (AUTO) 0.5 X 10^3 (0.0-1.0); MONOCYTES % (AUTO) 10 % (0-12); NEUTROPHILS # (AUTO) 3.8 X 10^3 (1.8-7.8); NEUTROPHILS % (AUTO) 78 % (42-75)
[2021-10-08 10:17] LABS: PROTHROMBIN TIME PATIENT 13.2 SEC (12.2-14.7)
--- NOTE | 2021-10-08 10:28 | Diagnostic Imaging Report ---
PROCEDURE: CT head without contrast. TECHNIQUE: Multiple contiguous axial images were obtained through the brain without the use of intravenous contrast. Auto Exposure Controls were utilized during the CT exam to meet ALARA standards for radiation dose reduction. INDICATION: Head pain, dizziness, weakness. No priors. FINDINGS: There is no hemorrhage, hydrocephalus, edema, mass, mass effect or evidence for elevated intracerebral pressures. There is mild membrane thickening in the maxillary sinuses. No paranasal sinus air-fluid level. The mastoids clear. The calvarium unremarkable. No orbital pathology. Ventricular system nondilated and nondisplaced. No mass effect or hemorrhage. IMPRESSION: Mild paranasal sinus membrane disease, otherwise negative with no acute appearing abnormalities. Dictated by: Dictated on workstation # [id number]
[2021-10-08 10:43] LABS: POTASSIUM 4.4 MMOL/L (3.6-5.0)
[2021-10-08 10:44] LABS: ALBUMIN 4.3 GM/DL (3.2-4.5); BILIRUBIN,TOTAL 1.1 MG/DL (0.1-1.0); CALCIUM 9.5 MG/DL (8.5-10.1); CREATININE SERUM 1.1 MG/DL (0.60-1.30); MAGNESIUM 2.2 MG/DL (1.6-2.4); TOTAL PROTEIN 7.2 GM/DL (6.4-8.2)
[2021-10-08] MEDS ORDERED: MECLIZINE 25 MG (ANTIVERT) TAB PO STA (10:51)
[2021-10-08 11:57] LABS: BILIRUBIN,URINE NEGATIVE (NEGATIVE); CLARITY,URINE CLEAR; COLOR,URINE YELLOW; GLUCOSE, URINE (UA) NEGATIVE (NEGATIVE); KETONES,URINE NEGATIVE (NEGATIVE); NITRITE,URINE NEGATIVE (NEGATIVE); PROTEIN,URINE NEGATIVE (NEGATIVE)
[2021-10-08] MEDS ORDERED: MECL-149 PO (12:05)
[2021-10-08 12:13] VITALS: BP 104/64
[2021-10-08 12:14] LABS: BACTERIA,URINE NEGATIVE /HPF; LEUKOCYTE ESTERASE ,URINE NEGATIVE (NEGATIVE); SQUAMOUS EPITHELIAL CELL,UR RARE /HPF; WBC,URINE RARE /HPF
== END 2021-10-08 12:13 | disposition home or self-care (01) ==
LOC: EDUNIT# 09:22 → ER FS 09:24
DX: R42 Dizziness and giddiness (principal); R55 Syncope and collapse; R00.1 Bradycardia, unspecified; J44.9 Chronic obstructive pulmonary disease, unspecified; I10 Essential (primary) hypertension; E78.00 Pure hypercholesterolemia, unspecified; Z79.899 Other long term (current) drug therapy; Z79.01 Long term (current) use of anticoagulants; Z79.82 Long term (current) use of aspirin
CPT/HCPCS: 36415; 70450; 71045; 80053; 81000; 83690; 83735; 83880; 84484; 85025; 85610; 85730; 93005; 93041

== ENCOUNTER → 2023-07-12 | Outpatient (CLI) | payer MEDICARE, OTHER ==
[~2023-07-12] MED LIST changes: +MECL-291 PO
== END ==
LOC: CARD 09:30
PROVIDERS: ATTEND Internal Medicine Cardiovascular Disease
DX: Q21.12 Patent foramen ovale (principal); I10 Essential (primary) hypertension; I25.10 Atherosclerotic heart disease of native coronary artery without angina pectoris
CPT/HCPCS: 93306

== ENCOUNTER 2023-08-29 10:55 | Emergency (ER) | payer MEDICARE ==
--- NOTE | 2023-08-29 11:08 | ED General ---
General Chief Complaint: Neurological Problems Stated Complaint: LT SIDE NUMBNESS | Source of Information: Patient Exam Limitations: No Limitations History of Present Illness Date Seen by Provider: Aug 29, 2023 Time Seen by Provider: 10:55 Initial Comments 67-year-old male with history of coronary artery disease presents to the emerge ncy department today for tingling, numbness and pain to the left side of his head. He states symptoms started mildly on Wednesday and have worsened through the day yesterday and persisted today. He denies any fevers chills, URI type symptoms. No chest pain or shortness of breath. He does state he has had some mild blurred vision in his left eye. He has had the shingles vaccination. Denies any rashes. Denies any weakness or dysarthria. All other systems reviewed and negative except documented per HPI. Voice recognition software was used to help create this chart Allergies and Home Medications Allergies Coded Allergies: No Known Drug Allergies (Unverified , 05/01/14) Patient Home Medication List Home Medication List Reviewed: Yes Aspirin (Aspirin 81 Mg Chew Tab) 81 Mg Chew, 81 MG PO DAILY, (Reported) Entered as Reported by: ASHLEY ALEXANDER on 05/01/14 0907 Azithromycin (Azithromycin) 250 Mg Tablet, 250 MG PO DAILY Prescribed by: JOSLYN TOBIN on 06/25/201840 Carvedilol (Coreg) 6.25 Mg Tablet, 6.25 MG PO BID, (Reported) Entered as Reported by: ERAN UREÑA on 11/25/17 0836 Cefdinir (Cefdinir) 300 Mg Capsule, 300 MG PO BID Prescribed by: JOSLYN TOBIN on 06/25/20 184 Clopidogrel Bisulfate (Plavix Tablet) 75 Mg Tab, 75 MG PO DAILY, (Reported) Entered as Reported by: ASHLEY ALEXANDER on 05/01/14 0907 Lisinopril (Prinivil) 10 Mg Tablet, 10 MG PO DAILY, (Reported) Entered as Reported by: ASHLEY ALEXANDER on 05/01/14 0907 Meclizine HCl (Meclizine HCl) 25 Mg Tablet, 25 MG PO TID PRN for DIZZINESS Prescribed by: YASMEEN JEREZ on 10/08/21 1205 Meloxicam (Meloxicam) 7.5 Mg Tablet, 7.5 MG PO BID, (Reported) Entered as Reported by: ERAN UREÑA on 11/25/17 0836 Nitroglycerin (Nitrostat) 0.3 Mg Tab.subl, 0.3 MG SL Q5 MIN X3 DOSES PRN for CHEST PAIN, (Reported) Entered as Reported by: ASHLEY ALEXANDER on 05/01/14 0907 Ondansetron (Ondansetron Odt) 4 Mg Tab.rapdis, 4 MG PO BID PRN for prn Prescribed by: RUBINA MASON on 05/14/20 1205 Pravastatin Sodium (Pravachol) 40 Mg Tablet, 40 MG PO HS, (Reported) Entered as Reported by: ASHLEY ALEXANDER on 05/01/14 0907 Varenicline Tartrate (Chantix) 0.5 Mg Tablet, 0.5 MG PO DAILY, (Reported) Entered as Reported by: ASHLEY ALEXANDER on 05/01/14 0907 Review of Systems Review of Systems Constitutional: see HPI Past Ywbqgye-Pdwdyr-Feuvcp Hx Patient Social History Tobacco Use?: No Use of E-Cig and/or Vaping dev: No Substance use?: No Alcohol Use?: No Immunizations Up To Date First/Initial COVID19 Vaccinat: 2020 Second COVID19 Vaccination Jesus: 2020 Past Medical History Surgery/Hospitalization HX: Hypertension, Hypercholesterolemia, CAD with stents Surgeries: Yes Respiratory: Yes COPD Cardiac: Yes (STENT X1 08/28/11, STENT X1 ON 04/27/13) Neurological: No Reproductive Disorders: No Sexually Transmitted Disease: No HIV/AIDS: No Gastrointestinal: Yes (CHOLECYSTITIS, CHOLECYSTECTOMY 05/02/14) Gall Bladder Disease Musculoskeletal: No Endocrine: No Cancer: No Psychosocial: No Integumentary: No Blood Disorders: No Adverse Reaction/Blood Tranf: No Family Medical History Cancer G8 BROTHER Chest pain 19 FATHER FH: COPD (chronic obstructive pulmonary disease) 19 FATHER Family history: Arthritis G8 BROTHER Family history: Cardiovascular disease 19 FATHER ( AT AGE 60 FROM [place]) G8 BROTHER (11 STINTS) Family history: Hypertension 19 FATHER G8 BROTHER Family history: Thyroid disorder 19 MOTHER Heart disease 19 FATHER Myocardial infarction 19 FATHER, Onset:60 years & older No Family History of: Congenital heart disease Physical Exam Vital Signs Vital Signs - First Documented 08/29/23 10:58 Temp 36.5 Pulse 64 Resp 18 B/P (MAP) 180/104 (129) Pulse Ox 100 O2 Delivery Room Air Capillary Refill : Height, Weight, BMI Height: 6'0.00" Weight: 165lbs. 0.0oz. [id number]; 23.00 BMI Method:Stated General Appearance: No Apparent Distress, WD/WN Eyes: Bilateral Eye Normal Inspection, Bilateral Eye PERRL, Bilateral Eye EOMI HEENT: PERRL/EOMI, TMs Normal, Normal ENT Inspection, Pharynx Normal Neck: Full Range of Motion, Normal Inspection, Non Tender, Supple Respiratory: Chest Non Tender, Lungs Clear, Normal Breath Sounds, No Accessory Muscle Use, No Respiratory Distress Cardiovascular: Regular Rate, Rhythm, No Murmur, Normal Peripheral Pulses Gastrointestinal: Normal Bowel Sounds, No Organomegaly, Non Tender, Soft Extremity: Normal Capillary Refill, Normal Inspection, Non Tender, No Calf Tenderness Neurologic/Psychiatric: Alert, Oriented x3, No Motor/Sensory Deficits, Normal Mood/Affect, change management consultant II-XII Norm as Tested Skin: Normal Color, Warm/Dry Progress/Results/Core Measures Suspected Sepsis SIRS Temperature: Pulse: Respiratory Rate: Laboratory Tests 08/29/23 11:10: White Blood Count 4.6 Blood Pressure / Mean: Laboratory Tests 08/29/23 11:10: Creatinine 1.05, Platelet Count 138, Total Bilirubin 1.3H Results/Orders Lab Results Laboratory Tests Test 08/29/23 11:10 Range/Units White Blood Count 4.6 4.3-11.0 10^3/uL Red Blood Count 4.40 4.30-5.52 10^6/uL Hemoglobin 13.7 13.3-17.7 g/dL Hematocrit 42 40-54 % Mean Corpuscular Volume 95 80-99 fL Mean Corpuscular Hemoglobin 31 25-34 pg Mean Corpuscular Hemoglobin Concent 33 32-36 g/dL Red Cell Distribution Width 13.2 10.0-14.5 % Platelet Count 138 130-400 10^3/uL Mean Platelet Volume 9.9 9.0-12.2 fL Immature Granulocyte % (Auto) 0 % Neutrophils (%) (Auto) 72 42-75 % Lymphocytes (%) (Auto) 14 12-44 % Monocytes (%) (Auto) 11 0-12 % Eosinophils (%) (Auto) 2 0-10 % Basophils (%) (Auto) 1 0-10 % Neutrophils # (Auto) 3.3 1.8-7.8 10^3/uL Lymphocytes # (Auto) 0.7 L 1.0-4.0 10^3/uL Monocytes # (Auto) 0.5 0.0-1.0 10^3/uL Eosinophils # (Auto) 0.1 0.0-0.3 10^3/uL Basophils # (Auto) 0.0 0.0-0.1 10^3/uL Immature Granulocyte # (Auto) 0.0 0.0-0.1 10^3/uL Sodium Level 139 135-145 MMOL/L Potassium Level 4.6 3.6-5.0 MMOL/L Chloride Level 106 98-107 MMOL/L Carbon Dioxide Level 25 21-32 MMOL/L Anion Gap 8 5-14 MMOL/L Blood Urea Nitrogen 17 7-18 MG/DL Creatinine 1.05 0.60-1.30 MG/DL Estimat Glomerular Filtration Rate 78 BUN/Creatinine Ratio 16 Glucose Level 98 70-105 MG/DL Calcium Level 9.6 8.5-10.1 MG/DL Corrected Calcium 9.4 8.5-10.1 MG/DL Total Bilirubin 1.3 H 0.1-1.0 MG/DL Aspartate Amino Transf (AST/SGOT) 22 5-34 U/L Alanine Aminotransferase (ALT/SGPT) 24 0-55 U/L Alkaline Phosphatase 55 40-136 U/L Total Protein 6.9 6.4-8.2 GM/DL Albumin 4.3 3.2-4.5 GM/DL My Orders Orders - JUVENTINO SHAW DO Ct Head Wo (08/29/23 11:02) Cbc And Automated Diff (08/29/23 11:02) Comprehensive Metabolic Panel (08/29/23 11:02) Vital Signs/I&O 08/29/23 10:58 Temp 36.5 Pulse 64 Resp 18 B/P (MAP) 180/104 (129) Pulse Ox 100 O2 Delivery Room Air Capillary Refill : Departure Communication (Admissions) Patient is hemodynamically stable, neurovascular motor and sensory intact. He has normal neuro exam normal visual acuity. No rash or other evidence of active shingles at this time however did advise that this could be active shingles versus mild nerve impingement. CT scan of his head is negative for any acute intracranial abnormality. I have independently reviewed these images. Labs are unremarkable, reassuring as is his exam, vital signs. He will be discharged home in stable condition with supportive care and close follow-up. Impression Primary Impression: Numbness and tingling Disposition: 01 HOME, SELF-CARE Condition: Stable Departure-Patient Inst. Referrals: IDALIA TRIVEDI DO (PCP/Family) Primary Care Physician Patient Instructions: Paresthesia (DC) Add. Discharge Instructions: No emergent conditions are identified for your symptoms. It does not appear that this is coming from a stroke or other emergent condition at this time. I think this may be early shingles versus a nerve impingement in the area. Recommend you follow-up with your primary doctor should your symptoms persist. If this is early shingles you will likely get a rash that is painful and scabbing over the next several days to 1 week. Return to the emergency dep artment for any severe concerns. Follow-up with your primary doctor for any nonemergent needs. All discharge instructions reviewed with patient and/or family. Voiced understanding. JUVENTINO SHAW DO Aug 29, 2023 11:08
[2023-08-29 11:15] LABS: BASOPHILS % (AUTO) 1 % (0-10); EOSINOPHILS # (AUTO) 0.1 10^3/uL (0.0-0.3); EOSINOPHILS % (AUTO) 2 % (0-10); HEMATOCRIT 42 % (40-54); HEMOGLOBIN 13.7 g/dL (13.3-17.7); LYMPHOCYTES # (AUTO) 0.7 10^3/uL (1.0-4.0); LYMPHOCYTES % (AUTO) 14 % (12-44); MEAN CORPUSCULAR HEMOGLOBIN 31 pg (25-34); MEAN CORPUSCULAR HGB CONC 33 g/dL (32-36); MEAN CORPUSCULAR VOLUME 95 fL (80-99); MEAN PLATELET VOLUME 9.9 fL (9.0-12.2); MONOCYTES # (AUTO) 0.5 10^3/uL (0.0-1.0); MONOCYTES % (AUTO) 11 % (0-12); NEUTROPHILS # (AUTO) 3.3 10^3/uL (1.8-7.8); NEUTROPHILS % (AUTO) 72 % (42-75); PLATELET COUNT 138 10^3/uL (130-400); WHITE BLOOD COUNT 4.6 10^3/uL (4.3-11.0)
--- NOTE | 2023-08-29 11:27 | Diagnostic Imaging Report ---
PROCEDURE: CT head without contrast. TECHNIQUE: Multiple contiguous axial images were obtained through the brain without the use of intravenous contrast. Auto Exposure Controls were utilized during the CT exam to meet ALARA standards for radiation dose reduction. INDICATION: Left-sided head tingling. Blurry vision. COMPARISON: 10/08/2021. FINDINGS: Mild to moderate generalized volume loss. No intracranial hemorrhage, mass effect, hydrocephalus, or extra-axial fluid collections. No CT evidence of a territorial infarction. Osseous structures are intact. Visualized paranasal sinuses and mastoids are clear. IMPRESSION: No acute intracranial CT findings. Dictated by: Dictated on workstation # [id number]
[2023-08-29 11:28] LABS: BILIRUBIN,TOTAL 1.3 MG/DL (0.1-1.0); CALCIUM 9.6 MG/DL (8.5-10.1); POTASSIUM 4.6 MMOL/L (3.6-5.0)
[2023-08-29 11:35] LABS: ALBUMIN 4.3 GM/DL (3.2-4.5); CREATININE SERUM 1.05 MG/DL (0.60-1.30); TOTAL PROTEIN 6.9 GM/DL (6.4-8.2)
[2023-08-29 11:48] VITALS: BP 143/83
== END 2023-08-29 11:49 | disposition home or self-care (01) ==
LOC: EDUNIT# 10:55 → ER FS 10:56
DX: R20.0 Anesthesia of skin (principal); R20.2 Paresthesia of skin
CPT/HCPCS: 36415; 70450; 80053; 85025